=== PATIENT | female | born 1980 | race Caucasian/White ===

== ENCOUNTER 2017-01-24 22:08 | Emergency (ER) | payer OTHER ==
[~2017-01-24] VITALS: Ht 165.1 cm; Wt 63.6 kg
[~2017-01-24 22:08] MED LIST: CYCL10TA9 PO; HYDR-3740 PO; HYDR-656 PO; LORA10CA PO; MAGN250T29 PO
[2017-01-24 22:26] VITALS: BP 118/85; PULSE 130; RESP 19; O2SAT 98
--- NOTE | 2017-01-24 22:44 | ED.REPORT ---
HPI-General Illness Date of Service Jan 24, 2017 ED Provider: Juan Antonio Payne MD A 36 year old female with a history of depression, anxiety, bipolar disorder and hepatitis C presents to the ED complaining of vomiting. The pt began experiencing lightheadedness and weakness at 18:30, followed by nausea, vomiting , leg pain, fever, chills and diaphoresis. She denies hematochezia. There are no other sick individuals in her home. Nursing Notes Stated Complaint: NAUSEA,VOMITING,HIP PAIN Chief Complaint: General Complaint Nursing Notes Reviewed: Yes Allergies: Coded Allergies: amoxicillin (Verified Allergy, Severe, throat swells,HIVES, 01/24/17) ciprofloxacin (Verified Allergy, Severe, throat swells,HIVES, 01/24/17) duloxetine (Verified Allergy, Severe, RASH, 01/24/17) gabapentin (Verified Allergy, Severe, HIVES, 01/24/17) ketorolac (Verified Allergy, Severe, Rash,Itching,, 01/24/17) meperidine (Verified Allergy, Severe, HIVES, 01/24/17) prochlorperazine (Verified Allergy, Severe, rash, 01/24/17) bupropion (Verified Allergy, Unknown, UNKNOWN, 01/24/17) amitriptyline (Verified Adverse Reaction, Severe, IMKE, 01/24/17) Uncoded Allergies: Droperidol (Allergy, Severe, UNKNOWN, 04/17/16) Scheduled Loratadine (Claritin) 10 Mg Capsule 10 MG PO DAILY Magnesium Oxide (Magnesium) 250 Mg Tablet 250 MG PO BID Ondansetron ODT (Ondansetron ODT) 8 Mg Tab.rapdis 8 MG PO QID Scheduled PRN Cyclobenzaprine (Cyclobenzaprine) 10 Mg Tablet 10 MG PO TID PRN PRN Spasm Hydrocodone-Acetaminophen 10-325 mg (Hydrocodone-Acetaminophen 10-325 mg) 1 Each Tablet 1 TABLET PO Q8H PRN PRN For Pain hydrOXYzine Hcl (HydrOXYzine Hcl) 25 Mg Tablet 25 MG PO TID PRN PRN For Itching General Time Seen by MD: 22:43 Chief Complaint Vomiting Hx Obtained From: Patient Arrived By: Walk-in Sudden in Onset?: No Onset Occurred: 5 - 8 hours ago Symptom Duration: Since onset Recent Healthcare: No recent hospitalization Similar Sx Previous: No Past Medical History Past Medical History Scoliosis Hep C - from past drug use Bipolar disorder Depression Anxiety Kidney stones Asthma Past Surgical History Reports: Cholecystectomy, Tonsillectomy Reports: Carpal tunnel, Tubal ligation Family History Noncontributory Smoking History Current Every Day Smoker, Heavy Tobacco Smoker Social History Alcohol Use: Denies alcohol use Drug Use: THC Other Social History: , Local resident Occupation no work or school Ambulatory Status Independent Review of Systems Full Review of Systems Constitutional: Reports: Chills, Fever GI: Reports: Nausea, Vomiting, Denies: Hematochezia Musculoskeletal: Reports: Extremity pain Skin: Reports Diaphoresis Neurologic: Reports: Lightheaded, Weakness Complete sys rev & neg: except as marked. Physical Exam Vital Signs Vital Signs Date Time Temp Pulse Resp B/P Pulse Ox O2 Delivery O2 Flow Rate FiO2 01/25/17 03:05 37.0 104 20 123/86 99 Room Air 01/24/17 22:26 37.3 130 19 118/85 98 Room Air Initial VS: Reviewed General/Constitutional: Awake, Alert anxious and writhing, in no physiological distress Head / Eyes: Atraumatic, Normocephalic, PERRL, EOMI ENT: Atraumatic, Airway patent Mouth: Positive: Mucous membranes dry (moderately) Neck: Atraumatic, Supple, Full range of motion Respiratory / Chest: Atraumatic, Breath sounds NL, Breath sounds = bilat, No respiratory distress Cardiovascular: Regular rhythm, Heart sounds NL Heart Rate / Rhythm: Positive: Tachycardia (mild) Abdomen: Atraumatic, Soft, No guarding, No rebound Back: Atraumatic, Full range of motion Upper Extremities Upper Extremity / MS: Atraumatic, Full range of motion Lower Extremity / Pelvis / MS: Atraumatic, Full range of motion Skin: Atraumatic, Color NL, No rash, Warm, Dry Neurologic: Oriented X3, Speech NL, No motor deficits, No sensory deficits Psychiatric: Affect NL, Mood NL Interpretation & Diagnostics Lab Results Interpretation Result Diagram: 01/24/17223301/24/172233 Test 01/24/17 22:34 01/24/17 22:38 01/25/17 01:25 01/25/17 02:45 White Blood Count 7.1th/mm3 (3.8-10.1) Red Blood Count 5.02mil/mm3 (3.90-5.20) Hemoglobin 11.7g/dL (12.0-15.6) Hematocrit 36.5% (35.0-46.0) Mean Corpuscular Volume 72.7fL (81-100) Mean Corpuscular Hemoglobin 23.3pg (27.0-35.0) Mean Corpuscular Hemoglobin Concent 32.1% (32.0-37.0) Red Cell Distribution Width 19.4% (12.3-15.4) Platelet Count 374bil/L (150-400) Neutrophils (%) (Auto) 96.1% (40-74) Lymphocytes (%) (Auto) 2.8% (14-46) Monocytes (%) (Auto) 0.4% (4-12) Eosinophils (%) (Auto) 0.1% (0-5) Basophils (%) (Auto) 0% (0-3) Prothrombin Time 10.5sec (8.1-12.5) Prothromb Time International Ratio 0.98ratio Sodium Level 137mEq/L (134-144) Potassium Level 3.6mEq/L (3.5-5.2) Chloride Level 98mEq/L (97-108) Carbon Dioxide Level 20mmol/L (18-29) Blood Urea Nitrogen 24mg/dL (6-20) Creatinine 0.80mg/dL (0.57-1.00) Estimat Glomerular Filtration Rate 116mL/min (>59) Glucose Level 100mg/dL (60-99) Calcium Level 9.2mg/dL (8.5-10.1) Magnesium Level 1.6mg/dL (1.6-2.6) Total Bilirubin 0.9mg/dL (0.0-1.2) Aspartate Amino Transf (AST/SGOT) 582U/L (0-50) Alanine Aminotransferase (ALT/SGPT) 285U/L (0-32) Alkaline Phosphatase 72U/L (25-150) Total Protein 7.4g/dL (6.4-8.4) Albumin 4.4g/dL (3.4-5.0) Lipase 94U/L (13-60) Hold Purple Top Tube Received (Received) Hold Blue Top Tube Received (Received) Hold [place] Top Tube Received (Received) Acetaminophen Level < 15.0ug/mL Rx (10-25) Urine Color Yellow (YELLOW) Urine Appearance Clear (CLEAR,HAZY) Urine pH 5.5 (5.0-8.0) Urine Specific [place] <1.005 (1.003-1.035) Urine Protein Negativemg/dL (NEG,TRACE) Urine Glucose (UA) Negativemg/dL (NEGATIVE) Urine Ketones Negativemg/dL (NEGATIVE) Urine Occult Blood Small (NEGATIVE) Urine Nitrite Negative (NEGATIVE) Urine Bilirubin Negative (NEGATIVE) Urine Urobilinogen Normalmg/dL (NORMAL) Urine Leukocyte Esterase Negative (NEGATIVE) Urine RBC 0-2/hpf (0-2) Urine WBC 0-5/hpf (0-5) Urine Epithelial Cells Few/hpf (NONE-MOD) Urine Crystals None seen (NONE SEEN) Urine Bacteria Few/hpf (NONE-FEW) Urine Hyaline Casts None/lpf (NONE) Urine Granular Casts None seen (NONE SEEN) Urine Waxy Casts None seen (NONE SEEN) Urine Red Blood Cell Casts None seen (NONE SEEN) Urine White Blood Cell Casts None seen (NONE SEEN) Urine Mucus None seen (None Seen) Urine Trichomonas None seen (NONE SEEN) Urine Yeast None (NONE SEEN) Urinalysis Comment None Urine Culture Reflexed Not indicated Hepatitis C Comment . CT Abd / Pelvis Interpretation CONCLUSION: Question mild gastroenteritis or ileus. No SBO. Small uterine mass, nonspecific, presumed fibroid. Incidental arcuate uterus. Small hepatic lesion, likely cyst or hemangioma. Interpretation / Wet Read by: Interpret - Radiologist Re-Eval/Medical Decision Med Decision/Clinical Course 36-year-old presents with nausea and vomiting low-grade abdominal pain. She is improved after fluids and meds here. CT scan shows only gastroenteritis. Discharged in stable condition with nausea relief for home use. Liver function tests are noted to be significantly elevated, an elevated compared to baseline. Source of this is not clear, but hepatitis panels pending. This may just be reactive to the infection that is caused her vomiting presently, but hepatitis panel is ordered. Tylenol level is zero. Denies Tylenol use or overdose. Follow up with PCP. Source of Hx: Old records Time of Eval: 02:43 Patient Status: Condition improved Re-Evaluation/Progress Note: Pt rechecked, who is resting comfortably. The diagnosis and plan for discharge are discussed. The pt understands and agrees with the plan. All questions are addressed at this time. Counseled Regarding: Diagnosis, Lab results, Need for follow-up, When/why to return to ED Discharge & Departure Primary Impression: Gastroenteritis Additional Impression: Elevated liver function tests Disposition: Home Discharge Condition All VS Reviewed: Yes Condition: Stable Patient Instructions: Acute Nausea and Vomiting (ED), Gastroenteritis (ED) Additional Instructions: You have elevations of your liver function tests. This is commonly from a viral infection. This can be directly related to your acute vomiting and diarrhea you have today. We have tests pending to check for the common sorts of hepatitis. Your doctor will have these results in three or four days. Drink plenty of clear fluids and stay well-hydrated. Start with a very simple low-fat diet and advance slowly as tolerated. Zofran four times daily if needed for nausea. Follow-up with your doctor in the office. Call this morning. Return if you develop bloody diarrhea or vomiting. Return for any other new symptoms of concern. Referrals: Андрей Duenas MD (PCP) Cornelius Attestation Portions of this note were transcribed by Carolyn Sanchez. I, Dr. Payne personally performed the history, physical exam and medical decision-making; I reviewed and confirmed the accuracy of the information in the transcribed note. Signed by: Cornelius Lucas, 01/25/2017 and 0259. copies to: Андрей Duenas MD, Christopher W MD Jan 24, 2017 22:44 CAROLYN SANCHEZ Jan 24, 2017 23:04
[2017-01-24] MEDS ORDERED: 0.9% Sodium Chloride 1,000 ML IV ONE ×2 (23:01→23:05)
[2017-01-24] MEDS ORDERED: Famotidine Inj 20 MG in IV Premix 1 EACH IV ONE (23:05)
[2017-01-24] MEDS ORDERED: Promethazine Inj 25 MG in 0.9% Sodium Chloride 50 ML IV ONE (23:05)
[2017-01-24] MEDS ORDERED: Ondansetron 2 mg/mL 2 mL Inj IVPUSH ONE (23:05)
[2017-01-24] MEDS ORDERED: 0.9% Sodium Chloride 50 ML ONE ×2 (23:12)
[2017-01-24 23:22] LABS: BASOPHILS % (AUTO) 0 % (0-3); EOSINOPHILS % (AUTO) 0.1 % (0-5); MONOCYTES % (AUTO) 0.4 % (4-12); Mean Corpuscular Hemoglobin 23.3 pg (27.0-35.0); Mean Corpuscular Volume 72.7 fL (81-100); NEUTROPHILS % (AUTO) 96.1 % (40-74); Platelet Count 374 bil/L (150-400)
[2017-01-24 23:28] LABS: INR 0.98 ratio
[2017-01-24 23:45] LABS: Magnesium 1.6 mg/dL (1.6-2.6)
[2017-01-25 01:52] LABS: APPEARANCE,URINE CLEAR (CLEAR,HAZY); COLOR,URINE YELLOW (YELLOW); OCCULT BLOOD,URINE SMALL (NEGATIVE); PH,URINE 5.5 (5.0-8.0); UROBILINOGEN,URINE NORMAL (NORMAL)
[2017-01-25] MEDS ORDERED: ONDA8TAB10 PO (02:04)
[2017-01-25 03:05] VITALS: BP 123/86; PULSE 104; RESP 20; O2SAT 99
--- NOTE | 2017-01-25 09:01 | DRSVH ---
PROCEDURE: CT ABDOMEN AND PELVIS WITH CONTRAST ([id number]) INDICATIONS: chronic pancreatitis, elevated transaminases TECHNIQUE: After the administration of intravenous contrast, 5 mm thick sections acquired from the diaphragm to the symphysis. 5 mm coronal and sagittal reformats were acquired. For radiation dose reduction, the following was used: automated exposure control, adjustment of mA and/or kV according to patient sampson shea. COMPARISON: [facility], CT, ABD/PELVIS W/CON (PN), 06/14/2008, 11:23. FINDINGS: Image quality: Excellent. ABDOMEN: Lung bases: Lung bases are clear. Heart size is normal. Solid organs: Hypodense liver lesion in the right lobe is unchanged since 06/14/08 likely cyst or joan ngioma. There is mild periportal edema. Spleen is unremarkable. Gallbladder surgically absent. Bilia ry system is non dilated. Pancreas enhances normally. No evidence of acute pancreatitis. No pancreat ic ductal dilatation. No pancreatic calcifications to suggest chronic pancreatitis. No adrenal nodules. Kidneys demonstrate normal size and enhancement, without hydronephrosis. Peritoneum and bowel: Mild, fluid distended small bowel loops within the right upper quadrant. There is minimal if any wall thickening There is relative decompression of the distal small bowel loops. N o definite transition point seen. There is mild stool seen within the colon. No evidence of acute div erticulitis. The rectum is grossly unremarkable and contains stool and gas. Appendix normal. No free air or free fluid. Nodes and vessels: No retroperitoneal or mesenteric adenopathy by size criteria. Aorta and inferior vena cava are normal in size. Miscellaneous: No ventral hernias. PELVIS: Genitourinary: Bladder wall thickness is normal. There is a probable 1.6 cm anterior uterine fibroi d although technically nonspecific. Arcuate versus bicornuate appearance of the uterus on coronal kelsey ges Miscellaneous: No inguinal hernias or adenopathy. Bones: No suspicious bony lesions. Chronic appearing left rib fractures. No vertebral body compress ion fractures. There is scoliosis. IMPRESSION: Normal appearance of the pancreas without specific CT evidence of acute or chronic pancreatitis. Possible mild gastroenteritis versus adynamic ileus. No definite transition point to suggest small teddy wel obstruction at this time although continued followup with abdominal series radiographs could be p erformed if the patient's symptoms warrant. Hepatic cyst or hemangioma, grossly stable since 2007. Uterine fibroid. Incidentally noted are acute/bicornuate appearance of the uterus. Scoliosis. Dictated by: James Harrison M.D. on 01/25/2017 at 8:36 Approved by: James Harrison M.D. on 01/25/2017 at 8:59
[2017-01-29 11:11] LABS: Hepatitis A Antibody IgM Negative (Negative); Hepatitis B Core Antibody IgM Negative (Negative)
== END 2017-01-25 03:06 | disposition home or self-care (01) ==
LOC: SED 22:08 → EDBD 22:08 → SED 01-25 03:06
DX: K52.9 Noninfective gastroenteritis and colitis, unspecified (principal); R79.89 Other specified abnormal findings of blood chemistry; F41.8 Other specified anxiety disorders; F31.9 Bipolar disorder, unspecified; J45.909 Unspecified asthma, uncomplicated; F17.200 Nicotine dependence, unspecified, uncomplicated; Z90.49 Acquired absence of other specified parts of digestive tract; Z87.442 Personal history of urinary calculi; Z88.1 Allergy status to other antibiotic agents; Z88.5 Allergy status to narcotic agent; Z88.6 Allergy status to analgesic agent; Z88.8 Allergy status to other drugs, medicaments and biological substances
CPT/HCPCS: 36415; 74177; 80053; 81000; 81002; 81025; 83690; 83735; 85025; 85610; 86705; 86709; 87340; 87341; 96361; 96374; 96375; 99285; G0472; G0480; J1200; J2550; J3490; J7030; Q9967

== ENCOUNTER 2017-02-22 16:20 | Emergency (ER) | payer OTHER ==
[~2017-02-22 16:20] MED LIST changes: +ONDA8TAB10 PO
[2017-02-22 16:27] VITALS: BP 147/97; PULSE 89; RESP 18; O2SAT 98
--- NOTE | 2017-02-22 17:30 | DRSVH ---
PROCEDURE: X-RAY FINGERS, TWO VIEWS LEFT INDICATIONS: third finger injury TECHNIQUE: AP hand, 2 views of the left third finger(s) acquired. COMPARISON: None. FINDINGS: Bones: No fractures or dislocations. No suspicious bony lesions. Soft tissues: No suspicious soft tissue calcifications. IMPRESSION: No acute fractures or dislocations. Dictated by: Mitchell Hernandez M.D. on 02/22/2017 at 17:27 Approved by: Mitchell Hernandez M.D. on 02/22/2017 at 17:28
--- NOTE | 2017-02-22 17:52 | ED.REPORT ---
HPI-Extremity Problem Upper Date of Service Feb 22, 2017 ED Provider: History of Present Illness: punched a cabinet in July, She did this after her . no pain after the injury. 2 weeks ago started having problems with pip joint locking on the left hand 3 finger. no primary care. no diabetes. no pain, just locking. left hand dominant Nursing Notes Stated Complaint: MIDDLE FINGER LEFT HAND INJURY Chief Complaint: General Complaint Nursing Notes Reviewed: Yes Allergies: Coded Allergies: amoxicillin (Verified Allergy, Severe, throat swells,HIVES, 01/24/17) ciprofloxacin (Verified Allergy, Severe, throat swells,HIVES, 01/24/17) duloxetine (Verified Allergy, Severe, RASH, 01/24/17) gabapentin (Verified Allergy, Severe, HIVES, 01/24/17) ketorolac (Verified Allergy, Severe, Rash,Itching,, 01/24/17) meperidine (Verified Allergy, Severe, HIVES, 01/24/17) prochlorperazine (Verified Allergy, Severe, rash, 01/24/17) bupropion (Verified Allergy, Unknown, UNKNOWN, 01/24/17) amitriptyline (Verified Adverse Reaction, Severe, MIKE, 01/24/17) Uncoded Allergies: Droperidol (Allergy, Severe, UNKNOWN, 04/17/16) Scheduled Loratadine (Claritin) 10 Mg Capsule 10 MG PO DAILY Magnesium Oxide (Magnesium) 250 Mg Tablet 250 MG PO BID Ondansetron ODT (Ondansetron ODT) 8 Mg Tab.rapdis 8 MG PO QID Scheduled PRN Cyclobenzaprine (Cyclobenzaprine) 10 Mg Tablet 10 MG PO TID PRN PRN Spasm Hydrocodone-Acetaminophen 10-325 mg (Hydrocodone-Acetaminophen 10-325 mg) 1 Each Tablet 1 TABLET PO Q8H PRN PRN For Pain hydrOXYzine Hcl (HydrOXYzine Hcl) 25 Mg Tablet 25 MG PO TID PRN PRN For Itching General Time Seen by MD: 17:51 Chief Complaint Finger injury left 3 Hx Obtained From: Patient Onset Occurred: More than a week ago... (2 weeks) Past Medical History Past Medical History Scoliosis Hep C - from past drug use Bipolar disorder Depression Anxiety Kidney stones Asthma Past Surgical History Reports: Cholecystectomy, Tonsillectomy Reports: Carpal tunnel, Tubal ligation Family History Noncontributory Smoking History Current Every Day Smoker (1.5 packs a day for 22 years), Heavy Tobacco Smoker Social History Alcohol Use: Denies alcohol use Drug Use: THC Other Social History: Local resident Occupation no work or school, lives with father 02/22/2017 Ambulatory Status Independent Review of Systems Basic Review of Systems Eyes: Vision NL, No discharge : No dysuria, No frequency Psychiatric: Normal thought content Physical Exam Initial Vital Signs Vital Signs (First) Date Time Temp Pulse Resp B/P Pulse Ox O2 Delivery O2 Flow Rate FiO2 02/22/17 16:27 36.8 89 18 147/97 98 Room Air Initial VS: Reviewed, Vital signs normal General/Constitutional: Well-developed, Well-nourished Head / Eyes: Atraumatic, Normocephalic, PERRL ENT: Mucous membranes moist, Conjunctiva normal, No scleral icterus Neck: Supple, Non-tender, Full range of motion Respiratory: Breath sounds normal, Clear to auscultation, No respiratory distress Cardiovascular: Regular rate & rhythm, Heart sounds normal, Intact distal pulses Abdomen / GI: Soft, Non-tender, No guarding, No rebound, No distention Back: No CVA tenderness Lymphatic: No lymphadenopathy Lower Extremities: Vascular intact, Neuro intact, No swelling, No tenderness Skin: Warm, Dry, No cyanosis Neurologic: Alert, Oriented, Nonfocal Psychiatric: Mood/affect normal, Behavior normal, Normal thought content General/Constitutional: Awake, Alert, No acute distress, Well appearing, Well developed, Well hydrated patient with speech alteration, baseline Respiratory / Chest: Atraumatic, Breath sounds NL, Breath sounds = bilat, No respiratory distress, No rales, No rhonchi, No wheezing, No retractions Cardiovascular: Heart rate NL, Regular rhythm, Heart sounds NL, No gallop, No murmurs, No rubs, Cap refill not delayed left hand 3rd finger has full range of motion at dip and mcp. Patient able to move finger at PIP joint but slowly. No erthyma, no swelling no sign of infection sensation intact distally. Cap refill less than 2 sec. Head / Eyes: Atraumatic, Normocephalic, PERRL, EOMI ENT: Atraumatic, Airway patent, Mucous membranes moist, Pharynx NL Abdomen: Atraumatic, Soft, Non-tender Interpretation & Diagnostics X-Ray Interpretation Xray Interpretation: PROCEDURE: X-RAY FINGERS, TWO VIEWS LEFT INDICATIONS: third finger injury TECHNIQUE: AP hand, 2 views of the left third finger(s) acquired. COMPARISON: None. FINDINGS: Bones: No fractures or dislocations. No suspicious bony lesions. Soft tissues: No suspicious soft tissue calcifications. IMPRESSION: No acute fractures or dislocations. Dictated by: Mitchell Hernandez M.D. on 02/22/2017 at 17:27 Approved by: Mitchell Hernandez M.D. on 02/22/2017 at 17:28 Re-Eval/Medical Decision Med Decision/Clinical Course 37 year old female presents for evualation of left hand dominate 3rd finger locking at the PIP joint. No sign of infection. X-ray is negative. No sign of fracture or compartment syndrome Discharge & Departure Impression: Primary Impression: Locking finger joint Disposition: Home Patient Instructions: Steroid Joint Injection (GEN) Additional Instructions: The x-ray does not show any sign of a fracture or dislocation. The oral steroids should help. Eventually you may need a steroid injection in the joint. Please call Dr. Abreu's office for a follow up appointment. Have a great New Year ! Referrals: Андрей Duenas MD (PCP) Scott Abreu DO EDSupervising Provider for APC: Clif Mejias MD Attending Statement I saw the patient with the [facility]. I agree with the plan and findings as documented above. Neurovascularly intact. Compartment soft. Plan as above. copies to: Scott Abreu DO; Андрей Duenas MD, Sue [facility] Feb 22, 2017 17:52 Clif Mejias MD Feb 22, 2017 18:26
[2017-02-22 18:24] VITALS: BP 157/90; PULSE 90; RESP 16; O2SAT 100
== END 2017-02-22 18:24 | disposition home or self-care (01) ==
LOC: SED 16:20
DX: M65.332 Trigger finger, left middle finger (principal); W22.8XXA Striking against or struck by other objects, initial encounter; Y93.89 Activity, other specified; Y92.9 Unspecified place or not applicable; Y99.8 Other external cause status; J45.909 Unspecified asthma, uncomplicated; F41.9 Anxiety disorder, unspecified; F31.9 Bipolar disorder, unspecified; F17.200 Nicotine dependence, unspecified, uncomplicated; Z88.1 Allergy status to other antibiotic agents; Z88.8 Allergy status to other drugs, medicaments and biological substances